=== PATIENT | female | born 1995 | race Two or more races ===

== ENCOUNTER 2017-06-03 15:00 | Emergency (ER) ==
[2017-06-03 15:06] VITALS: BP 119/74; TEMP 100.5; BMI 26.6
--- NOTE | 2017-06-03 15:40 | ED.PDOC ---
General ED Provider: Dr. TORIBIO MCKEON Chief Complaint: Respiratory Complaint Stated Complaint: COUGH, FLU LIKE SYMPTOMS Time Seen by Physician: 15:00 (SEEN WITH YAHAIRA SÁNCHEZ ) Mode of Arrival: Walk-In Information Source: Patient Exam Limitations: No limitations Nursing and Triage Documentation Reviewed and Agree: Yes Reviewed sepsis parameters & appropriate labs ordered?: Yes System Inflammatory Response Syndrome: Not Applicable Sepsis Protocol: For patient's 13 years and over: Temp is 96.8 and below OR 101 and greater Pulse >90 BPM Resp >20/minute Acutely Altered Mental Status Are patient's symptoms suggestive of a new infection, such as: -Pneumonia -Skin, Soft Tissue -Endocarditis -UTI -Bone, Joint Infection -Implantable Device -Acute Abdominal Infection -Wound Infection -Meningitis -Blood Stream Catheter Infection -Unknown System Inflammatory Response Syndrome: Not Applicable Respiratory Complaint Exam - Respiratory Complaint/Exam Onset/Duration: 2 DAYS Symptoms Are: Still present Timing: Intermittent Initial Severity: Mild Current Severity: Mild Location: Nose, Throat, Chest Character: Reports: Non-productive cough Aggravating: Reports: URI Associated Signs and Symptoms: Reports: Nasal congestion, Sore throat. Denies: Rapid breathing, Dyspnea, Fever, Chills, Chest pain, Pleuritic chest pain, Wheezing, Hemoptysis, Dizziness, Calf pain, Calf swelling, Edema, URI, Hoarseness, Sinus discomfort, Vomiting, Weight loss, Decreased oral intake, Increased thirst, Increased appetite, Increased urination History of Healthcare-Acquired Pneumonia: No Related Surgical History: Reports: None Pulmonary Embolism Risk Factors: None Cardiac Risk Factors: Reports: None Pseudomonas Risk Factors: Reports: None Tuberculosis Risk Factors: Reports: None Status Asthmaticus Risk Factors: Reports: None Home Oxygen Use: No Recent Stress Test: No Recent Echo/LV Function: No Current Antibiotic Use: No Current Asthma Medication Use: No Respiratory Distress: None Inadequate Respiratory Effort: No Dysphagia Present: No Stridor Present: No JVD Present: No Accessory Muscle Use: No Retractions: Not Present Diminished Breath Sounds: No Sinus Tenderness: None Grunting Respirations: No Kussmaul Respirations: No Differential Diagnoses: Influenza Review of Systems - Review Of Systems Constitutional: Reports: Malaise Eyes: Reports: No symptoms Ears, Nose, Mouth, Throat: Reports: Throat pain Respiratory: Reports: No symptoms Cardiac: Reports: No symptoms GI: Reports: No symptoms : Reports: No symptoms Musculoskeletal: Reports: No symptoms Skin: Reports: No symptoms Neurological: Reports: No symptoms Endocrine: Reports: No symptoms Hematologic/Lymphatic: Reports: No symptoms All Other Systems: Reviewed and Negative Past Medical History - Past Medical History Previously Healthy: Yes Endocrine: Reports: None Cardiovascular: Reports: None Respiratory: Reports: None Hematological: Reports: None Gastrointestinal: Reports: None Genitourinary: Reports: None Neuro/Psych: Reports: None Musculoskeletal: Reports: None Cancer: Reports: None Last Menstrual Period: now - Surgical History General Surgical History: Reports: None - Family History Family History: Reports: None - Social History Smoking Status: Former smoker Hx Substance Use: No Alcohol Screening: None - Immunizations Tetanus Shot up to Date: Yes Physical Exam - Physical Exam Appearance: Well-appearing, No pain distress, Well-nourished Eyes: JEZ, EOMI, Conjunctiva clear ENT: Ears normal, Nose normal, Oropharynx normal Respiratory: Airway patent, Breath sounds clear, Breath sounds equal, Respirations nonlabored Cardiovascular: RRR, Pulses normal, No rub, No murmur GI/: Soft, Nontender, No masses, Bowel sounds normal, No Organomegaly Musculoskeletal: Normal strength, ROM intact, No edema, No calf tenderness Skin: Warm, Dry, Normal color Neurological: Sensation intact, Motor intact, Reflexes intact, Cranial nerves intact, Alert, Oriented Psychiatric: Affect appropriate, Mood appropriate Critical Care Note - Critical Care Note Total Time (mins): 0 Course - Course Orders, Labs, Meds: Lab Review 06/03/17 15:10 Influenza A (Rapid) Negative by naat Influenza B (Rapid) Positive by naat H Orders Category Date Time Status FLU A & B MOLECULAR [FLU A/B MOLECULAR] Stat LAB 06/03/17 15:10 Completed MOLECULAR GROUP A STREP Stat LAB 06/03/17 15:10 Completed CHEST, 2 VIEWS PA & LAT Stat RADS 06/03/17 15:34 Ordered Vital Signs: Temp Pulse Resp BP Pulse Ox 06/03/17 15:01 100.5 F H 82 16 119/74 98 Departure - Departure Time of Disposition: 15:40 Disposition: HOME SELF-CARE Discharge Problem: Influenza Instructions: Influenza (ED) Condition: Good Pt referred to PMD for follow-up: Yes IPMP verified?: No Additional Instructions: Please call your Family Physician as soon as possible to schedule a follow-up appointment. Allergies/Adverse Reactions: Allergies No Known Allergies Allergy (Unverified 06/03/17 15:06) Home Medications: Ambulatory Orders 1 [No Reported Medications] 06/03/17 Disposition Discussed With: Patient
== END 2017-06-03 15:50 | disposition home or self-care (01) ==
LOC: ED 15:00
DX: J10.1 Influenza due to other identified influenza virus with other respiratory manifestations (principal)
CPT/HCPCS: 87502; 87651; 99282